=== PATIENT | male | born 1990 | race Caucasian/White ===

== ENCOUNTER → 2016-09-03 | Emergency (ER) | payer OTHER ==
[~2016-09-03] MED LIST: IBUPROFEN 400 MG TABLET (FP) PO ONE; IBUPROFEN 600 MG TABLET (FP) PO ONE; OSELTAMIVIR PHOSPHATE 75 MG CAPSULE ONE; OSELTAMIVIR PHOSPHATE 75 MG CAPSULE PO ONE
[2016-09-03 00:46] VITALS: BP 131/72; PULSE 113; TEMP 99.1; BMI 25.0
--- NOTE | 2016-09-03 00:51 | PDOC ---
History of Present Illness - General History Source: Patient Exam Limitations: No Limitations - History of Present Illness Initial Comments: 09/03/16 01:40 The patient is a 26 year old male, with no significant past medical history, who presents to the emergency department complaining of generalized malaise and cough for approximately 2 days. The patient reports the cough is nonproductive. The patient denies any fever, chills, nasal congestion, sore throat, headache, or dizziness. The patient's Tmax in the ED was 99.1F. The patient denies any nausea, vomiting, diarrhea, constipation, or changes in urination patterns. The patient denies any chest pain, palpitations, or diaphoresis. The patient denies any recent travel or sick contacts. Allergies: None reported. Past Surgical History: None reported. Social History: Current everyday smoker. Denies alcohol or drug use. <Susan Leary - Last Filed: 09/03/16 01:40> - General History Source: Patient <NilsonEnrique lopes - Last Filed: 09/03/16 01:56> - General Chief Complaint: Cold Symptoms Stated Complaint: FEVER Time Seen by Provider: 09/03/16 00:43 Past History <Susan Leary - Last Filed: 09/03/16 01:40> - Psycho/Social/Smoking Cessation Hx Suicidal Ideation: No Smoking History: Current every day smoker Number of Cigarettes Smoked Daily: 4 Information on smoking cessation initiated: No Hx Alcohol Use: No Drug/Substance Use Hx: No <Enrique Almonte - Last Filed: 09/03/16 01:56> - Past Medical History Allergies/Adverse Reactions: Allergies Allergy/AdvReac Type Severity Reaction Status Date / Time No Known Allergies Allergy Verified 09/03/16 00:29 Home Medications: Ambulatory Orders Ibuprofen 800 mg PO TID #30 tablet 09/03/16 Oseltamivir Phosphate [Tamiflu] 75 mg PO TID #6 capsule 09/03/16 Review of Systems - Review of Systems Able to Perform ROS?: Yes Comments:: 09/03/16 01:42 CONSTITUTIONAL: Present: +generalized malaise Absent: fever, no chills, no fatigue EYES: Absent: visual changes ENT: Absent: ear pain, no sore throat CARDIOVASCULAR: Absent: chest pain, no palpitations RESPIRATORY: Present: +cough Absent: no SOB GI: Absent: abdominal pain, no nausea, no vomiting, no constipation, no diarrhea GENITOURINARY: Absent: dysuria, no frequency, no hematuria MUSKULOSKELETAL: Absent: back pain, no arthralgia, no myalgia SKIN: Absent: rash NEURO: Absent: headache <Susan Leary - Last Filed: 09/03/16 01:40> *Physical Exam - Vital Signs Last Vital Signs Temp Pulse Resp BP Pulse Ox 99.1 F 113 H 14 131/72 93 L 09/03/16 00:29 09/03/16 00:29 09/03/16 00:29 09/03/16 00:29 09/03/16 00:29 - Physical Exam Comments: 09/03/16 01:42 GENERAL: Well-appearing, well-nourished. No apparent distress. HEENT: Normocephalic, atraumatic. PERRL, EOM intact. CARDIOVASCULAR: Normal S1, S2. Regular rate and rhythm. PULMONARY: Decreased breath sounds in bilateral lung martinez. No wheezing, rales or rhonchi. ABDOMEN: Soft, non-distended, non-tender. EXTREMITIES: Normal ROM in all four extremities. No gross deformities. SKIN: Warm, dry. No rash NEUROLOGICAL: No focal neurological deficits. <Yanni Learyshabbiramanda - Last Filed: 09/03/16 01:40> - Vital Signs Last Vital Signs Temp Pulse Resp BP Pulse Ox 99.1 F 113 H 14 131/72 93 L 09/03/16 00:29 09/03/16 00:29 09/03/16 00:29 09/03/16 00:29 09/03/16 00:29 <Enrique Almonte - Last Filed: 09/03/16 01:56> Medical Decision Making - Medical Decision Making 09/03/16 01:53 Dr. Almonte: The scribe's documentation has been prepared under my direction and personally reviewed by me in its entirery. I confirm that the note above accurately reflects all work, treatment, procedures, and medical decision making performed by me. Patient found to have positive influenza A swab. Will treat with Tamiflu <Enrique Almonte - Last Filed: 09/03/16 01:56> *DC/Admit/Observation/Transfer - Attestations Scribe Attestion: 09/03/16 01:43 Documentation prepared by Susan Leary, acting as medical lab technician for Enrique Almonte DO. <Susan Leary - Last Filed: 09/03/16 01:40> - Discharge Dispostion Admit: No <Enrique Almonte - Last Filed: 09/03/16 01:56> Diagnosis at time of Disposition: Influenza A - Discharge Dispostion Disposition: HOME Condition at time of disposition: Stable - Referrals Referrals: STAFF,NOT ON [Primary Care Provider] - Radha Bazan MD [Staff Physician] - - Patient Instructions Printed Discharge Instructions: DI for Influenza -- Adult Additional Instructions: Please take medications as directed. Drink plenty of fluids. Bed rest until cured. Avoid contact with others, especially if they are ill. - Post Discharge Activity Work/School Note: Back to Work
== END | disposition home or self-care (01) ==
LOC: JER 00:18
DX: J09.X2 Influenza due to identified novel influenza A virus with other respiratory manifestations (principal); F17.210 Nicotine dependence, cigarettes, uncomplicated
CPT/HCPCS: 71020-TC; 87804; 99281-25